=== PATIENT | female | born 1945 | race Caucasian/White ===

== ENCOUNTER 2021-11-15 19:07 | Emergency (ER) | payer OTHER, BC ==
[2021-11-15 19:19] VITALS: BP 160/86; PULSE 90; TEMP 98.3; BMI 29.2
== END 2021-11-15 23:40 | disposition home or self-care (01) ==
LOC: SUPCPDRO 19:07 → FER 19:07
DX: M54.16 Radiculopathy, lumbar region (principal)
CPT/HCPCS: 72131-TC; 99284-25